=== PATIENT | female | born 1970 | race Two or more races ===

== ENCOUNTER 2022-08-13 06:19 | Day surgery (SDC) | payer OTHER ==
[~2022-08-13] VITALS: Ht 154.9 cm; Wt 59.0 kg
[~2022-08-13 06:19] MED LIST: LOSARTAN-HCTZ1 EAC1 PO; SYNTHROID50 MCG PO
== END 2022-08-13 16:10 | disposition home or self-care (01) ==
LOC: CIR.AMB 06:19
PROVIDERS: ATTEND Surgery
DX: D05.12 Intraductal carcinoma in situ of left breast (principal); N60.82 Other benign mammary dysplasias of left breast; R92.1 Mammographic calcification found on diagnostic imaging of breast; R59.0 Localized enlarged lymph nodes; Z90.12 Acquired absence of left breast and nipple; I10 Essential (primary) hypertension; Z86.16 Personal history of COVID-19; Z20.822 Contact with and (suspected) exposure to COVID-19; E03.9 Hypothyroidism, unspecified
CPT/HCPCS: 19303; 38525; 19357; A9541

== ENCOUNTER 2022-10-15 05:50 | Day surgery (SDC) | payer OTHER ==
[~2022-10-15] VITALS: Ht 154.9 cm; Wt 59.0 kg
[~2022-10-15 05:50] MED LIST changes: +EVISTA60 MG PO
== END 2022-10-15 17:25 | disposition home or self-care (01) ==
LOC: CIR.AMB 05:50
PROVIDERS: ATTEND Plastic Surgery
DX: Z90.12 Acquired absence of left breast and nipple (principal); N64.89 Other specified disorders of breast; N65.1 Disproportion of reconstructed breast; Z20.822 Contact with and (suspected) exposure to COVID-19

== ENCOUNTER 2023-03-25 05:53 | Day surgery (SDC) | payer OTHER ==
[2023-03-24 09:02] LABS: PH,URINE 5.5 (5.0-8.0); URINE APPEARANCE Clear; URINE BILIRRUBIN Negative (NEGATIVE); URINE COLOR Yellow; URINE GLUCOSE Negative (NEGATIVE); URINE LEUKOCYTE Negative; URINE NITRATE Negative; URINE PROTEIN Negative (NEGATIVE); URINE UROBILINOGEN 0.2 E.U./dl
[2023-03-24 09:06] LABS: URINE BACTERIA 410.6 uL (0.0-1933); URINE EPITHELIAL CELLS 39.2 uL (0.0-38.8); URINE RBC 23.4 uL (0.0-20.8); URINE WBC 5.2 uL (0.0-23.2)
[2023-03-24 09:11] LABS: URINE BLOOD TRACES
[2023-03-24 09:20] LABS: HEMATOCRIT 38.5 % (36.0-45.00); HEMOGLOBIN 13.1 g/dL (12.0-15.00); MEAN CELL VOLUME 88.6 fL (80.00-100.00); MEAN CORPUSCULAR HEMOGLOBIN 30.1 pg (27.00-32.0); RED BLOOD COUNT 4.34 M/uL (4.00-6.00); RED CELL DISTRIBUTION WIDTH 13.3 % (11.5-14.5)
[2023-03-24 09:30] LABS: CALCIUM 8.9 mg/dL (8.5-10.1); CREATININE SERUM 0.74 mg/dL (0.55-1.02); GFR 82.09; INR 1.02; PARTIAL THROMBOPLASTIN TIME 26.2 SECONDS (22.0-34.0); POTASSIUM 3.27 mEq/L (3.5-5.1); PROTHROMBIN TIME 10.7 SECONDS (9.0-11.5)
[2023-03-24 10:01] LABS: PLATELET COUNT 404 K/uL (150-450)
[~2023-03-25 05:53] MED LIST changes: +TYSABRI300 MG/15 IV
== END 2023-03-25 11:50 | disposition home or self-care (01) ==
LOC: CIR.AMB 05:53
PROVIDERS: ATTEND Plastic Surgery
DX: N65.1 Disproportion of reconstructed breast (principal); Z90.12 Acquired absence of left breast and nipple; Z85.3 Personal history of malignant neoplasm of breast; Z20.822 Contact with and (suspected) exposure to COVID-19; I10 Essential (primary) hypertension; E03.9 Hypothyroidism, unspecified